=== PATIENT | female | born 1980 | race Caucasian/White ===

== ENCOUNTER 2018-05-11 15:33 | Outpatient (REF) | payer BC, SELFPAY ==
--- NOTE | 2018-05-11 14:45 | PAPFT_PTH ---
PATIENT: Tahmina Cooper LOC: [facility] U#:[id number] AGE/SX: 37/F ROOM: RE05/11/[address]: Renee Tenorio : 1980 BED: DIS: 05/11/2018 SPEC #: [id number] RECD: 05/14/18 13:17 STATUS: NAIMA REQ #: [id number] BREANNE: 05/11/18 14:[address]: Renee Tenorio DEPT: [facility] Cytology RECD BY: Pippa London ENTERED: 05/14/18 13:18 SP TYPE: PAPFT OTHR DR: Guero Busby Tissues: 1 - CX/ENDOCX FOR PAP SMEARS Procedures: PAP THIN PREP/[facility] Screening HPV DNA PROBE Comments: [id number]
== END 2018-05-11 15:53 ==
LOC: NCHCN 15:33
PROVIDERS: PCP Internal Medicine; Visit Provider Internal Medicine
DX: Z00.00 Encounter for general adult medical examination without abnormal findings (principal); Z12.4 Encounter for screening for malignant neoplasm of cervix; Z11.51 Encounter for screening for human papillomavirus (HPV)
CPT/HCPCS: 88142; 87624

== ENCOUNTER 2023-08-11 14:59 | Outpatient (REF) | payer BC, SELFPAY ==
--- NOTE | 2023-08-11 13:30 | PAPFT_PTH ---
PATIENT: Tahmina Cooper LOC: [facility] U#:[id number] AGE/SX: 42/F ROOM: RE08/11/[address]: Renee Tenorio : 1980 BED: DIS: 08/11/2023 SPEC #: [id number] RECD: 08/14/23 13:17 STATUS: GERBrant REViri #: [id number] BREANNE: 08/11/23 13:[address]: Renee Tenorio DEPT: [facility] Cytology RECD BY: Pippa London ENTERED: 08/14/23 13:18 SP TYPE: PAPFT OTHR DR: Guero Busby Tissues: 1 - CX/ENDOCX FOR PAP SMEARS Procedures: PAP THIN PREP/[facility] Screening HPV DNA PROBE Comments: [id number]
== END 2023-08-11 15:00 | disposition home or self-care (01) ==
LOC: NCHCN 14:59
PROVIDERS: PCP Internal Medicine; Visit Provider Internal Medicine
DX: Z00.01 Encounter for general adult medical examination with abnormal findings (principal); Z12.4 Encounter for screening for malignant neoplasm of cervix
CPT/HCPCS: 88142; 87624